=== PATIENT | female | born 1995 | race Caucasian/White ===

== ENCOUNTER → 2019-12-23 15:41 | Outpatient (BNVA) | payer MEDICAID, SELFPAY | PROVIDERS: Visit Provider Nurse Practitioner Women's Health | DX: Z30.9 Encounter for contraceptive management, unspecified (principal); N76.0 Acute vaginitis; Z30.011 Encounter for initial prescription of contraceptive pills; N94.5 Secondary dysmenorrhea; Z01.419 Encounter for gynecological examination (general) (routine) without abnormal findings | CPT/HCPCS: 88175 ==